=== PATIENT | male | born 1945 | race Caucasian/White ===

== ENCOUNTER 2018-04-05 01:19 | Emergency (ER) | payer BC ==
--- NOTE | 2018-04-05 02:42 | ED PDOC ---
HPI: Male Pain Time Seen by Provider: 04/05/18 01:30 Chief Complaint (Nursing): Male Genitourinary Chief Complaint (Provider): Male Genitourinary History Per: Patient, Family (Daughter) History/Exam Limitations: no limitations Onset/Duration Of Symptoms: Days (x3) Quality Of Discomfort: Burning Associated Symptoms: Urinary Symptoms (Slight dysuria, leakage). denies: Fever, Vomiting Additional Complaint(s): 72 years old male presents to ER for evaluation of leakage of urine and slight dysuria with burning sensation onset 3 days. Patient reports he had a prostate surgery last week of October and states everything was okay after the procedure until 3 days ago. He states he called his doctor in [place] who recommended pelvic exercise. Patient reports using diapers for the leakage. He denies fever, vomiting or having PMD in the [place] PMD: non provided Past Medical History Reviewed: Historical Data, Nursing Documentation, Vital Signs Vital Signs: Last Vital Signs Temp 98.4 F 04/05/18 01:37 Pulse 66 04/05/18 01:37 Resp 16 04/05/18 01:37 BP 221/103 H 04/05/18 01:37 Pulse Ox 100 04/05/18 01:37 - Medical History Other PMH: Hemorrhoids - Surgical History Other surgeries: Prostate surgery - Family History Family History: States: Unknown Family Hx - Social History Current smoker - smoking cessation education provided: No Alcohol: Occasional Drugs: Denies - Home Medications Home Medications: Ambulatory Orders Medication Instructions Recorded Ciprofloxacin HCl [Cipro] 500 mg PO BID #20 tab 04/05/18 - Allergies Allergies/Adverse Reactions: Allergies Allergy/AdvReac Type Severity Reaction Status Date / Time No Known Allergies Allergy Verified 04/05/18 01:37 Review of Systems ROS Statement: Except As Marked, All Systems Reviewed And Found Negative Constitutional: Negative for: Fever Gastrointestinal: Negative for: Vomiting, Abdominal Pain Genitourinary Male: Positive for: Dysuria. Negative for: Hematuria Physical Exam - Reviewed Nursing Documentation Reviewed: Yes Vital Signs Reviewed: Yes - Physical Exam Appears: Positive for: Non-toxic, No Acute Distress Head Exam: Positive for: ATRAUMATIC, NORMOCEPHALIC Skin: Positive for: Normal Color, Warm, Dry Eye Exam: Positive for: Normal appearance Neck: Positive for: Normal Cardiovascular/Chest: Positive for: Regular Rate, Rhythm. Negative for: Murmur Respiratory: Positive for: Normal Breath Sounds. Negative for: Wheezing Gastrointestinal/Abdominal: Positive for: Normal Exam, Soft. Negative for: Tenderness, Distended Extremity: Positive for: Normal ROM. Negative for: Tenderness, Swelling Neurologic/Psych: Positive for: Alert, Oriented (x3) - ECG O2 Sat by Pulse Oximetry: 100 (RA) Pulse Ox Interpretation: Normal Medical Decision Making Medical Decision Making: Time: 208 Initial Plan: dysruria --Urine culture --Urinalysis 319 Lab shows UTI. Upon reevaluation, patient reports improvement of symptoms, stable for discharge with a prescription of Cipro. Patient has an appointment with a urologist on Sunday. dc home w family. ----- Scribe Attestation: Documented by Lilliam Head, acting as a scribe for Camron Conde MD. Provider Scribe Attestation: All medical record entries made by the Scribe were at my direction and personally dictated by me. I have reviewed the chart and agree that the record accurately reflects my personal performance of the history, physical exam, medical decision making, and the department course for this patient. I have also personally directed, reviewed, and agree with the discharge instructions and disposition. Disposition - Clinical Impression Clinical Impression: Urinary tract infection - Patient ED Disposition Is Patient to be Admitted: No Counseled Patient/Family Regarding: Studies Performed, Diagnosis, Need For Followup - Disposition Disposition: Routine/Home Disposition Time: 03:20 Condition: IMPROVED Additional Instructions: follow up with your urologist on Sunday return to the ED with any worsening or concerning symptoms Prescriptions: Ciprofloxacin HCl [Cipro] 500 mg PO BID #20 tab Instructions: Urinary Tract Infections in Adults Forms: [employer] (Korean)
[2018-04-05 02:56] LABS: SQUAMOUS EPITHIAL < 1 /hpf (0-5); URINE BACTERIA FEW (<OCC); URINE BILIRUBIN NEGATIVE (NEGATIVE); URINE BLOOD SMALL (NEGATIVE); URINE CLARITY CLOUDY (Clear); URINE COLOR YELLOW (YELLOW); URINE GLUCOSE (UA) NEG (Normal); URINE LEUKOCYTE ESTERASE LARGE Leu/uL (Negative); URINE PROTEIN NEGATIVE (NEGATIVE); URINE UROBILINOGEN 0.2-1.0 mg/dL (0.2-1.0)
[2018-04-05 03:28] VITALS: BP 168/86; PULSE 54; RESP 17; TEMP 98.3
[2018-04-09 13:17] VITALS: O2SAT 100
== END 2018-04-05 04:10 | disposition home or self-care (01) ==
LOC: H.ER 01:19
DX: N39.0 Urinary tract infection, site not specified (principal)